=== PATIENT | female | born 2000 | race Two or more races ===

== ENCOUNTER 2023-06-22 20:42 | Emergency (ER) | payer OTHER ==
[~2023-06-22] VITALS: Ht 162.6 cm; Wt 74.8 kg
== END 2023-06-23 04:39 | disposition home or self-care (01) ==
LOC: ER 20:42
DX: M54.50 Low back pain, unspecified (principal); M25.552 Pain in left hip; M79.652 Pain in left thigh; Z88.2 Allergy status to sulfonamides